=== PATIENT | female | born 1950 | race Caucasian/White ===

== ENCOUNTER → 2017-05-10 | Outpatient (CLI) | payer BC, MEDICARE ==
[2017-05-10 10:51] LABS: Follicle Stimulating Hormone 37.2 mIU/mL; Prolactin 16.6 ng/mL (3.0-18.6)
== END | disposition home or self-care (01) ==
LOC: LABWHC1 07:04
PROVIDERS: ATTEND Internal Medicine Endocrinology, Diabetes & Metabolism
DX: D35.2 Benign neoplasm of pituitary gland (principal)
CPT/HCPCS: 36415; 82024; 82533; 83001; 83002; 84146; 84439; 84443

== ENCOUNTER → 2017-06-09 | Outpatient (CLI) | payer MEDICARE, BC ==
--- NOTE | 2017-06-09 15:41 | US ---
EXAMINATION TYPE: US kidneys/renal and bladder DATE OF EXAM: 06/09/2017 COMPARISON: NONE CLINICAL HISTORY: 67-year-old female with N18.9 CHRONIC KIDNEY DISEASE. Low potassium. TECHNIQUE: Multiple sonographic images of the kidneys and bladder were obtained. FINDINGS: Right Kidney: 10.7 x 5.1 x 5.3 cm without hydronephrosis. Scattered echogenic foci present within, l argest in the midpole measuring 6 mm. Left Kidney: 10.1 x 5.3 x 4.1 cm without hydronephrosis. Scattered echogenic foci are present within . There is a 1.1 cm hyperechoic lesion along the lower pole cortex. No gross abnormality of the partially urine distended bladder. Both ureteral jets are visualized. Post Void Residual Volume: 35 mL IMPRESSION: 1. No hydronephrosis. 2. Scattered echogenic foci in both kidneys, largest measuring 6 mm on the right. Underlying nonobstr uctive nephrolithiasis not excluded. 3. A 1.1 cm hyperechoic lesion along the left lower pole cortex. While findings may represent an AML, RCC can uncommonly present as an echogenic lesion. Recommend 3-6 month follow-up ultrasound to reass ess. 4. Postvoid residual bladder volume of 35 mL. This falls within an acceptable range.
== END ==
LOC: RADUSWWP 14:58
PROVIDERS: ATTEND Internal Medicine Endocrinology, Diabetes & Metabolism
DX: N28.9 Disorder of kidney and ureter, unspecified (principal)
CPT/HCPCS: 76770

== ENCOUNTER → 2017-06-21 | Outpatient (CLI) | payer MEDICARE, BC ==
[2017-06-21 15:27] LABS: CH 29.7; CHCM 33.6; HCT 40.6 % (34.0-46.0); HDW 2.72; HGB 13.7 gm/dL (11.4-16.0); MCH 29.9 pg (25.0-35.0); MCHC 33.7 g/dL (31.0-37.0); MCV 88.6 fL (80.0-100.0); Mean Platelet Volume 7.7; RBC 4.59 m/uL (3.80-5.40); RDW 15.1 % (11.5-15.5); WBC 8.2 k/uL (3.8-10.6)
[2017-06-21 15:39] LABS: ALT 33 U/L (9-52); AST 32 U/L (14-36); Alkaline Phosphatase 88 U/L (38-126); Anion Gap 10 mmol/L; Appearance,Urine Clear (Clear); Bilirubin,Urine Negative (Negative); Blood Urea Nitrogen 23 mg/dL (7-17); Calcium 8.8 mg/dL (8.4-10.2); Carbon Dioxide 25 mmol/L (22-30); Chloride 103 mmol/L (98-107); Glucose 111 mg/dL (74-99); Glucose,Urine (UA) Negative (Negative); Ketones,Urine Negative (Negative); Leukocyte Esterase,Urine Negative (Negative); Nitrite,Urine Negative (Negative); Non-African American GFR(MDRD) 53 (>60 ml/min/1.73 sqM); Phosphorous 3.8 mg/dL (2.5-4.5); Potassium 4.5 mmol/L (3.5-5.1); Protein,Urine Negative (Negative); Sodium 138 mmol/L (137-145); Specific Gravity,Urine 1.017 (1.001-1.035); Total Bilirubin 0.6 mg/dL (0.2-1.3); Total Protein 6.9 g/dL (6.3-8.2); UA Billing (MACRO vs. MICRO) CHEM; Urobilinogen,Urine <2.0 mg/dL (<2.0)
== END | disposition home or self-care (01) ==
LOC: LABWHC1 14:25
PROVIDERS: ATTEND Internal Medicine Endocrinology, Diabetes & Metabolism
DX: N18.9 Chronic kidney disease, unspecified (principal)
CPT/HCPCS: 36415; 80053; 81003; 84100; 85027

== ENCOUNTER → 2017-09-14 | Outpatient (CLI) | payer MEDICARE, BC | END | disposition home or self-care (01) | LOC: LABWHC1 07:23 | PROVIDERS: ATTEND Internal Medicine Endocrinology, Diabetes & Metabolism | DX: E04.2 Nontoxic multinodular goiter (principal); D35.2 Benign neoplasm of pituitary gland; E11.65 Type 2 diabetes mellitus with hyperglycemia | CPT/HCPCS: 36415; 82533 ==

== ENCOUNTER → 2017-11-30 | Outpatient (CLI) | payer MEDICARE ==
[2017-11-30 11:00] LABS: T4, Free (Free Thyroxine) 0.83 ng/dL (0.78-2.19)
[2017-11-30 18:11] LABS: ACTH 12.7 pg/mL (0.00-45.99)
== END | disposition home or self-care (01) ==
LOC: LABWHC1 09:46
PROVIDERS: ATTEND Internal Medicine Endocrinology, Diabetes & Metabolism
DX: D35.2 Benign neoplasm of pituitary gland (principal)
CPT/HCPCS: 36415; 82024; 82533; 83001; 83002; 84146; 84305; 84439; 84443

== ENCOUNTER → 2018-05-29 | Outpatient (CLI) | payer MEDICARE ==
[2018-05-29 12:38] LABS: T4, Free (Free Thyroxine) 0.83 ng/dL (0.78-2.19)
[2018-05-29 20:43] LABS: ACTH 13.6 pg/mL (0.00-45.99)
== END | disposition home or self-care (01) ==
LOC: LABWHC1 11:15
PROVIDERS: ATTEND Internal Medicine Endocrinology, Diabetes & Metabolism
DX: D35.2 Benign neoplasm of pituitary gland (principal)
CPT/HCPCS: 36415; 82024; 82533; 84146; 84439; 84443; 84480

== ENCOUNTER → 2023-08-16 | Outpatient (CLI) | payer MEDICARE ==
--- NOTE | 2023-08-17 08:16 | US ---
EXAMINATION TYPE: US thyroid st tissue head/neck DATE OF EXAM: 08/16/2023 COMPARISON: 03/10/2015 CLINICAL INDICATION: Female, 73 years old with history of MULTINODULAR GOITER E04.2 thyroid nodules l eft side removed. ; GLAND SIZE: Right Lobe: 6.0 x 2.3 x 2.4 cm Overall Parenchyma: heterogenous Left Lobe: Surgically absent cm Isthmus Thickness: .3 cm NODULES RIGHT: # of nodules measured on right: multiple largest inferior 1. 1.5 X 1.0 x 1.6 cm, lower medial, solid or almost completely solid, hypoechoic nodule, which is wider than tall, with smooth margins, without echogenic foci. Prior size: No prior LEFT: # of nodules measured on left: 0 ISTHMUS: # of nodules measured in the isthmus: 0 Bilateral neck scanned, no evidence of lymphadenopathy. IMPRESSION: 1. Diffuse glandular heterogeneity. 2.TR3 nodule right thyroid lobe. 3. Changes of left-sided thyroidectomy.
== END | disposition home or self-care (01) ==
LOC: RADUSWWP 15:07
PROVIDERS: ATTEND Internal Medicine Endocrinology, Diabetes & Metabolism
DX: E04.2 Nontoxic multinodular goiter (principal)
CPT/HCPCS: 76536

== ENCOUNTER 2023-09-21 12:36 | Day surgery (SDC) | payer MEDICARE ==
[2023-09-21] MEDS ORDERED: ALPRAZolam 0.25 MG TAB PO STA (13:00)
[2023-09-21 13:41] VITALS: RESP 16; TEMP 97.7
--- NOTE | 2023-09-21 14:10 | US ---
ULTRASOUND GUIDED FNA THYROID BIOPSY: CLINICAL HISTORY: Right thyroid nodule FINDINGS: The procedure was explained to the patient. The risks, complications, benefits and alternatives were discussed and any questions were answered. Informed consent was obtained. Patient was placed supin e on the ultrasound table and prepped and draped in the usual sterile fashion. Utilizing a 25 gauge needle, five passes were made into the requested right thyroid nodule. Patient was stable throughout the procedure. Pathology is pending. All elements of maximal barrier technique were utilized. IMPRESSION: 1. Successful ultrasound guided FNA thyroid biopsy.
[2023-09-21 14:13] VITALS: BP 99/51; PULSE 84
== END 2023-09-21 14:00 | disposition home or self-care (01) ==
LOC: RADPROMAIN 12:36
PROVIDERS: ATTEND Internal Medicine Endocrinology, Diabetes & Metabolism
DX: E04.1 Nontoxic single thyroid nodule (principal)
CPT/HCPCS: 10005; 88173; 88305

== ENCOUNTER → 2024-07-06 | Outpatient (CLI) | payer MEDICARE ==
--- NOTE | 2024-07-06 15:12 | US ---
EXAMINATION TYPE: US thyroid st tissue head/neck DATE OF EXAM: 07/06/2024 COMPARISON: Thyroid ultrasound 08/16/2023, 03/10/2015, ultrasound FNA 09/21/2023 CLINICAL INDICATION: Female, 74 years old with history of E04.2 NONTOXIC MULTINODULAR GOITER; follow up exa,. lt thyroidectomy 12 years ago GLAND SIZE: Right Lobe: 5.8 x 1.5 x 2.5 cm Overall Parenchyma: heterogeneous Left Lobe: Surgically absent Isthmus Thickness: 0.7 cm NODULES RIGHT: # of nodules measured on right: 0 LEFT: Surgically removed ISTHMUS: # of nodules measured in the isthmus: 1 - FNA 2022 1. 1.4 X 0.8 x 1.3 cm solid or almost completely solid, hypoechoic nodule, which is wider than tall, with smooth margins, without echogenic foci. TR 4. Prior size: 1.5 x 1.0 x 1.6 cm Bilateral neck scanned, no evidence of lymphadenopathy. IMPRESSION: 1. Stable to marginally decreased in size of previously biopsied isthmus 1.5 cm nodule. No new or en larging pulmonary nodules. 2. Post left thyroidectomy changes. [facility] 07/06/2024 1:54 PM
== END | disposition home or self-care (01) ==
LOC: RADUSWWP 13:37
PROVIDERS: ATTEND Internal Medicine Endocrinology, Diabetes & Metabolism
DX: E04.2 Nontoxic multinodular goiter
CPT/HCPCS: 76536